=== PATIENT | female | born 1990 | race Hispanic/Latino ===

== ENCOUNTER 2019-11-15 21:02 | Day surgery (SDC) | payer BC, SELFPAY ==
[2019-11-15 21:59] VITALS: BMI 35.3
[2019-11-15] MEDS ORDERED: hydrALAZINE 20 MG/ML VIAL SLOW IVP PRN (22:12)
[2019-11-15 23:15] LABS: Amphetamine Not Detected (NotDetected); Bacteria/HPF None Seen HPF (None Seen); Barbiturates Screen Not Detected (NotDetected); Benzodiazepine Screen Not Detected (NotDetected); Bilirubin Negative (Negative); Blood, Urine Negative (Negative); Clarity Clear (Clear); Cocaine Metabolite Screen Not Detected (NotDetected); Glucose, Urine (Dipstick) Normal (Negative); Leukocyte 75 Leu/uL (Negative); Medtox Control Line Valid? VALID (VALID); Medtox Reader # READER 4; Methadone Not Detected (NotDetected); Methamphetamine Not Detected (NotDetected); Nitrite Negative (Negative); Opiate Screen Not Detected (NotDetected); Oxycodone Screen Not Detected (NotDetected); Phencyclidine (PCP) Not Detected (NotDetected); Protein, Urine (Dipstick) 10 mg/dL (Neg-Trace); Squamous Epithelial 0-3 HPF (0-3); THC/Cannabinoid Screen Detected (NotDetected); Tricyclic Screen Not Detected (NotDetected); Urobilinogen Normal mg/dL (Less than 2); WBC/HPF 0-3 HPF (0-3)
--- NOTE | 2019-11-15 23:53 | ULT ---
OB ULTRASOUND: 11/15/19 COMPARISON: None. HISTORY: Abdominal pain in a female. No care. TECHNIQUE: Multiplanar ellison scale and color Doppler images were obtained in a transabdominal ultrasound. FINDINGS: There is a single live intrauterine with heart rate of 152 beats per minute. The fetus is i n vertex presentation. The cervix cannot be seen secondary to the position. Average age of the fetus based off today's examination is 37 weeks and 0 days. The following measurements were taken and dates based off these measurements are as follows: BPD 9.08 cm 36 weeks, 6 days HC 32.65 cm 37 weeks, 0 days AC 33.36 cm 37 weeks, 2 days FL 7.24 cm 37 weeks, 0 days The placenta is anterior in location without evidence of placenta previa. LIAN is 9.7 cm, which is nor mal. imp Single live intrauterine with estimated age of 37 weeks, 0 days. POS: EAA
[2019-11-15 23:55] LABS: Hemoglobin 11.2 g/dL (12.0-16.0); Mean Corpuscular HGB CONC 33.5 g/dL (32.0-36.0); Mean Corpuscular Hemoglobin 27.7 pg (27.0-31.0); Mean Corpuscular Volume 82.8 fL (78.0-98.0); Mean Platelet Volume 7.8 fL (7.4-10.4); Platelet Count 294 thou/uL (130-400); RBC Distribution Width 13.2 % (11.5-14.5); Red Blood Cell (RBC) Count 4.05 mill/uL (4.20-5.40); White Blood Cell (WBC) Count 11.2 thou/uL (4.8-10.8)
[2019-11-16 00:33] LABS: Syphilis Antibody Nonreactive (Nonreactive); Syphilis Antibody Index 0.04 S/CO (<1.00 Non-Reactive)
[2019-11-16 00:34] LABS: HBSAg Index 0.21 S/CO (0-0.99); HIV (1/2) Antibody/Antigen Non-Reactive (NonReactive); HIV 1/2 INDEX 0.11 S/CO (<1.00); Hep B Surf Ag Non-Reactive S/CO (NonReactive)
--- NOTE | 2019-11-16 07:40 | PRG ---
DATE OF SERVICE: 11/15/2019 No care. CHIEF COMPLAINT: Groin pain. HISTORY OF PRESENT ILLNESS: The patient is a 29-year-old G6, P5 female with an intrauterine estimated at 37 weeks, who is presenting to Labor and Delivery with complaints of groin pain. The patient has not had any care. She has had one visit at what sounds like [place] at around 14 weeks gestation and a reported due date of 11/22. The patient reports that she has been having this groin pain for the last several days where it has been difficult to lift her leg to move and walk. She denies any vaginal bleeding, leakage of fluid, urinary urgency or frequency. She denies fever, fall, headache, chest pain, shortness of breath, cough, nausea, vomiting, diarrhea, constipation, hip problems, knee problems, muscle weakness. PAST MEDICAL HISTORY: Negative. PAST SURGICAL HISTORY: Negative. SOCIAL HISTORY: The patient denies drug, alcohol, tobacco use. ALLERGIES: NO KNOWN DRUG ALLERGIES. MEDICATIONS: vitamins. OB LABS: Unavailable. REVIEW OF SYSTEMS: Per HPI. PHYSICAL EXAMINATION: VITAL SIGNS: Blood pressure is 106/54, heart rate of 83, respiratory rate of 16, saturating 100% on room air, temperature 98.3. GENERAL: She appears to be in no acute distress. She is alert, oriented, cooperative, pleasant to interact with. HEAD: Normocephalic, atraumatic. LUNGS: Clear to auscultation bilaterally. HEART: Has a regular rate and rhythm. ABDOMEN: Gravid, soft, nontender. EXTREMITIES: Nontender, nonedematous. She does have some groin pain, exacerbated with deviation of the uterus to the right. No evidence of hernia. Pain reports to shoot into her vaginal region and feels some referred pain or discomfort down into her knee region. heart tracing shows the fetus with a baseline in the 130s with moderate long-term variability, positive 15 x 15 accelerations, no decelerations. The tocometer does not have any contractions visible. White count is 11.2, hemoglobin 11.2, hematocrit 33.5, and platelets of 294,000. Urinalysis is negative for protein, ketones, nitrites, the patient has zero white blood cells, zero squamous cells, no bacteria seen. Drug screen is positive for cannabinoids. Serology syphilis is nonreactive. Hepatitis B surface antigen is nonreactive. HIV is nonreactive. Blood type is O positive with a negative antibody screen. Ultrasound shows a fetus in vertex presentation with anterior placenta and MAGNO of 9.7 cm and estimated gestational age of 37 weeks. ASSESSMENT AND PLAN: The patient is a 29-year-old female with a term and without care. Fetus has a reactive NST and category 1 tracing and is in vertex presentation. GBS has been collected and rubella has been collected today and still pending results. [facility] has provided information to her about the clinic and has given her contact information to establish care there. Job ID: [id number]
== END 2019-11-15 23:50 | disposition home or self-care (01) ==
LOC: L&D/OP 21:02
PROVIDERS: ATTEND Obstetrics & Gynecology
DX: O99.89 Other specified diseases and conditions complicating pregnancy, childbirth and the puerperium (principal); R10.30 Lower abdominal pain, unspecified; Z3A.37 37 weeks gestation of pregnancy
CPT/HCPCS: 36415; 59025; 76805; 80306; 81001; 85027; 86762; 86780; 86850; 86900; 86901; 87081; 87340; 87389; 99285

== ENCOUNTER 2019-11-30 13:10 | Inpatient (IN) | payer MEDICAID, SELFPAY ==
[2019-11-30 13:44] VITALS: BMI 34.7
[2019-11-30 14:44] LABS: Amnisure Test No Membranes Rupture (No Rupture)
[2019-11-30 14:45] LABS: Amnisure Internal Control QC ACCEPTABLE (ACCEPTABLE)
[2019-11-30] MEDS ORDERED: Ibuprofen 800 MG TAB PO PRN (18:56)
[2019-11-30] MEDS ORDERED: Butorphanol Tartrate 1 MG/ML VIAL SLOW IVP PRN (18:56)
[2019-11-30] MEDS ORDERED: Ondansetron PF 4 MG/2 ML Vial IVP PRN ×2 (18:56→23:18)
[2019-11-30] MEDS ORDERED: Promethazine HCl 25 MG/ML VIAL IM PRN ×2 (18:56→23:18)
[2019-11-30] MEDS ORDERED: NS / Oxytocin 40 units/1000ml 1,000 ML IV PRN (18:56)
[2019-11-30] MEDS ORDERED: hydrALAZINE 20 MG/ML VIAL SLOW IVP PRN (18:56)
[2019-11-30] MEDS ORDERED: Lactated Ringer's 1,000 ML IV SCH ×2 (18:56)
[2019-11-30] MEDS ORDERED: HYDROcodone/Acetaminophen 5/325 mg Tablet PO PRN ×2 (18:56)
[2019-11-30] MEDS ORDERED: NS w/ Oxytocin 10 units 500 ML IV SCH (18:56)
[2019-11-30] MEDS ORDERED: Lidocaine 1% (PF) 30 ML VIAL SC PRN (18:56)
[2019-11-30] MEDS ORDERED: Penicillin G Potassium 5 MILL.UNITS in Sodium Chloride 0.9% 100 ML IVPB SCH (19:00)
[2019-11-30 19:18] LABS: Hemoglobin 11.6 g/dL (12.0-16.0); Mean Corpuscular HGB CONC 32.3 g/dL (32.0-36.0); Mean Corpuscular Hemoglobin 26.4 pg (27.0-31.0); Mean Corpuscular Volume 81.7 fL (78.0-98.0); Platelet Count 298 thou/uL (130-400); RBC Distribution Width 14.3 % (11.5-14.5); Red Blood Cell (RBC) Count 4.41 mill/uL (4.20-5.40); White Blood Cell (WBC) Count 13.7 thou/uL (4.8-10.8)
--- NOTE | 2019-11-30 19:22 | HP ---
TIME OF SERVICE: 1845 hours. REASON FOR ADMISSION: A 41 weeks' gestation, moderately good criteria with no care for induction of labor. HISTORY OF PRESENT ILLNESS: Ms. Long is a 29-year-old 6, para 5. The patient reports she has custody of all 5 children; however, this has not been evident. She reports that this baby is for adoption. She has had care limited to an ultrasound and new OB visit with a negative GC and chlamydia in [place] on 05/30. BPD at that time revealed a composite gestational age of 14 weeks and 6 days, which placed her MCKENNA at 11/21 to 11/22. This places her at 41 weeks plus. She presented today stating she fell and slipped on her bottom. The fetus was active, no bleeding; however, the patient desires induction of labor. COLD MEAT CHEF HISTORY: post-term x5. Denies any other complications. MEDICAL HISTORY: None. SURGICAL HISTORY: None. ALLERGIES: DENIES. MEDICATIONS: None. SOCIAL HISTORY: Denies tobacco, alcohol, or IV drug use. FAMILY HISTORY: Noncontributory. REVIEW OF SYSTEMS: Noncontributory. PHYSICAL EXAMINATION: GENERAL: female, in no acute distress. VITAL SIGNS: Temperature 98.2, pulse 85, blood pressure 132/72. HEENT: Within normal limits auscultation bilaterally. HEART: Regular rhythm. ABDOMEN: Soft and nontender. Fundal height 40. FHTs 150s. Vulva without lesions. Vagina without discharge. Cervix posterior, 1 to 2, 30, -2 cephalic. EXTREMITIES: Without clubbing, cyanosis, or edema. LABORATORY DATA: All OB labs pending. IMPRESSION: A 41 weeks with limited care, but early 2nd trimester ultrasound consistent with 41 weeks gestation. PLAN: Considering the patient's unwillingness to care and to be responsible about her at 41 weeks. We will go ahead and induce her labor and consult social work. Job ID: [id number]
[2019-11-30 19:57] LABS: Syphilis Antibody Nonreactive (Nonreactive); Syphilis Antibody Index 0.04 S/CO (<1.00 Non-Reactive)
[2019-11-30 21:07] LABS: HBSAg Index 0.18 S/CO (0-0.99); HIV (1/2) Antibody/Antigen Non-Reactive (NonReactive); HIV 1/2 INDEX 0.07 S/CO (<1.00); Hep B Surf Ag Non-Reactive S/CO (NonReactive)
[2019-11-30] MEDS ORDERED: Fentanyl 4 mcg/Bup 0.1% Cadd 100 ML ONE (23:00)
[2019-11-30] MEDS ORDERED: diphenhydrAMINE 50 MG/ML VIAL IVP PRN (23:18)
[2019-11-30] MEDS ORDERED: Lactated Ringer's 500 ML IV PRN (23:18)
[2019-11-30] MEDS ORDERED: Acetaminophen 325 MG TAB PO PRN (23:18)
[2019-11-30] MEDS ORDERED: Naloxone HCl 0.4 mg/ml Vial IVP PRN ×2 (23:18)
[2019-11-30] MEDS ORDERED: EPHEDRINE 25 MG/5 ML SYRINGE SLOW IVP PRN (23:18)
[2019-11-30] MEDS: Fentanyl 4 mcg/Bupivacaine 0.1% Cassette 100 ML EPIDURAL SCH (23:20)
[2019-11-30] MEDS ORDERED: Communication Order-Pharmacy FS SCH (23:30)
[2019-11-30] MEDS: Penicillin G 2.5 MILL.units 2.5 MILL.UNITS in Premix Bag 1 BAG IVPB SCH (23:40)
[2019-12-01] MEDS: Penicillin G 2.5 MILL.units 2.5 MILL.UNITS in Premix Bag 1 BAG IVPB SCH ×3 (03:25→17:39)
[2019-12-01 05:10] LABS: Amphetamine Not Detected (NotDetected); Barbiturates Screen Not Detected (NotDetected); Benzodiazepine Screen Not Detected (NotDetected); Cocaine Metabolite Screen Not Detected (NotDetected); Medtox Control Line Valid? VALID (VALID); Medtox Reader # READER 4; Methadone Not Detected (NotDetected); Methamphetamine Not Detected (NotDetected); Opiate Screen Not Detected (NotDetected); Oxycodone Screen Not Detected (NotDetected); Phencyclidine (PCP) Not Detected (NotDetected); THC/Cannabinoid Screen Detected (NotDetected); Tricyclic Screen Not Detected (NotDetected)
[2019-12-01] MEDS ORDERED: Fentanyl 4 mcg/Bup 0.1% Cadd 100 ML ONE (07:41)
[2019-12-01] MEDS: Fentanyl 4 mcg/Bupivacaine 0.1% Cassette 100 ML EPIDURAL SCH (07:46)
--- NOTE | 2019-12-01 08:11 | PRG ---
DATE OF SERVICE: 12/01/2019 TIME OF SERVICE: 0730 hours. SUBJECTIVE: The patient is on . She received an epidural, exam reveals cervix to be 6, 70, -2, cephalic, bag of water intact. AROM was performed with clear fluid noted. Category 1 heart rate tracing. IMPRESSION: Now at 41+ weeks' gestation, induction of labor, insufficient care PLAN: Continue induction of labor. Anticipate spontaneous vaginal delivery. Dr. Ibarra will be taking over the patient's care at 0800 hours. Job ID: [id number]
[2019-12-01] MEDS ORDERED: Methylergonovine 0.2 MG/ML VIAL ONE ×2 (11:59→12:00)
[2019-12-01] MEDS ORDERED: Misoprostol 200 MCG TAB ONE (12:00)
[2019-12-01] MEDS ORDERED: Methylergonovine 0.2 MG/ML VIAL IM PRN (12:04)
[2019-12-01] MEDS ORDERED: Misoprostol 200 MCG TAB PR PRN (12:04)
[2019-12-01] MEDS ORDERED: Lanolin Ointment 7 GM TUBE TOP PRN (13:19)
[2019-12-01] MEDS ORDERED: Milk Of Magnesia 30 ML UDCUP PO PRN (13:19)
[2019-12-01] MEDS ORDERED: Bisacodyl 10 MG SUPP PR PRN (13:19)
[2019-12-01] MEDS ORDERED: NS / Oxytocin 40 units/1000ml 1,000 ML IV SCH (13:19)
[2019-12-01] MEDS ORDERED: Ondansetron PF 4 MG/2 ML Vial IVP PRN (13:19)
[2019-12-01] MEDS ORDERED: hydrALAZINE 20 MG/ML VIAL SLOW IVP PRN (13:19)
[2019-12-01] MEDS ORDERED: Adacel (T-DAP) 0.5 ML SYRINGE IM ONE (13:19)
[2019-12-01] MEDS: Ferrous Sulfate 325 MG TAB PO SCH (17:32)
[2019-12-01] MEDS: traMADol HCl 50 MG TAB PO PRN (17:42)
[2019-12-01] MEDS: Ibuprofen 800 MG TAB PO SCH ×2 (17:42→21:22)
[2019-12-01] MEDS: Docusate Calcium (SURFAK) 240 MG CAP PO SCH (21:22)
--- NOTE | 2019-12-02 00:10 | OP ---
DATE OF PROCEDURE: 12/01/2019 The patient delivered a female infant on 12/01/2019 at 11:51 a.m. by uncomplicated term spontaneous vaginal delivery. The gestational age is 41 weeks and 2 days. Apgars were 7 and 9. weight was 3937 g. There were no lacerations. Quantitative blood loss 300 mL. Delivering physician [address] Dr. Dylon Ibarra. Counts were correct. Complications none. Mother and baby were stable in the room in the immediate . Job ID: [id number]
[2019-12-02 05:31] LABS: Hemoglobin 9.9 g/dL (12.0-16.0)
[2019-12-02] MEDS: Ibuprofen 800 MG TAB PO SCH ×2 (06:10→14:24)
[2019-12-02] MEDS: Ferrous Sulfate 325 MG TAB PO SCH (07:44)
[2019-12-02] MEDS: Docusate Calcium (SURFAK) 240 MG CAP PO SCH (07:44)
[2019-12-02] MEDS: traMADol HCl 50 MG TAB PO PRN (07:47)
[2019-12-02 08:21] VITALS: BP 99/62; TEMP 98
[2019-12-02] MEDS ORDERED: Prenatal Vitamin 1 TAB PO SCH (09:00)
--- NOTE | 2019-12-03 02:40 | DIS ---
DATE OF ADMISSION: 11/30/2019 DATE OF DISCHARGE: 12/02/2019 ADMITTING DIAGNOSES: 1. No care. 2. 41 weeks' gestation by 14-week ultrasound. DISCHARGE DIAGNOSES: 1. No care. 2. 41 weeks' gestation by 14-week ultrasound. PROCEDURE: Term spontaneous vaginal delivery. HOSPITAL COURSE: The patient is a 29-year-old grand multiparous female, who presented to Labor and Delivery because she slipped and fell. During evaluation, the patient was noted to be 41 weeks' gestation by a 14-week ultrasound and having had no care. The patient was kept for induction of labor for postdates. Her labor course and delivery were uncomplicated. She is now day one, tolerating p.o., voiding on her own, having decreased lochia and good pain control. She reports that this baby is up for adoption and has already chosen adoptive parents, who will be assuming care at time of delivery and has expressed interest in discharging home. Vital signs this morning; blood pressure is 93/49, temperature 97.9, pulse is 66, and respiratory rate is 16. In general, she appears to be in no acute distress. She is alert, oriented, cooperative, and pleasant to interact with. Head is normocephalic and atraumatic. Fundus is firm. Extremities are nontender and nonedematous. LABORATORY DATA: hemoglobin 9.9 and hematocrit 32.3. DISCHARGE INSTRUCTIONS: The patient will be discharged home with ibuprofen for pain control. She has reported that she is going to follow up with [place] [facility] for her care. We told her to seek medical attention if she experiences fever, increasing pain, or bleeding. Otherwise, a six-week visit is appropriate. Job ID: [id number]
--- NOTE | 2019-12-04 04:16 | PQF ---
Lennie Long MICHAEL MD [id number] CLINICAL DOCUMENTATION CLARIFICATION FORM: POST DISCHARGE Addendum to original discharge summary date: 12/02/19 Late entry note date: 12/04/19 DATE:12/04/2019 ATTN:Dylon Salazar Please exercise your independent, professional judgment in responding to the clarification form. Clinical indicators are provided on the bottom of this form for your review Please check appropriate box(s): [ x] Associated Diagnosis: Acute blood loss anemia [ ] Not clinically significant laboratory findings [ ] Other diagnosis [ ] Unable to determine In addition, please specify: Present on Admission (POA): [ ] Yes [ x ] No [ ] Unable to determine For continuity of documentation, please document condition throughout progress notes and discharge summary. Thank You. CLINICAL INDICATORS - SIGNS / SYMPTOMS / LABS Laboratory 11/29 RBC 44.1, Hgb 11.6, Hct 36.0 Laboratory 12/01 Hgb 9.9, Hct 32.3 Vital signs 11/29 BP 113/70, Pulse 91, Resp 18, Temp 98.4 Operative report p1 11/30 Quantitative blood loss 300ml RISK FACTORS H&P p1 11/29 41 weeks of gestation H&P p2 11/29 Limited care Operative report p1 11/30 s/p TREATMENTS: Sep 27 IV Lactated Ringer 1L SEP 27 Ferrous Sulfate 325 mg oral Laboratory monitoring (This form is maintained as a part of the permanent medical record) 2014 [employer], [employer]. All Rights Reserved [email or web address]
== END 2019-12-02 17:45 | disposition home or self-care (01) | DRG 806 ==
LOC: L&D 13:10 → 3SW 12-01 14:53
PROVIDERS: ADMIT Obstetrics & Gynecology; ATTEND Obstetrics & Gynecology
PROC: 10E0XZZ Delivery of Products of Conception, External Approach (ICD-10-PCS; principal; 2019-11-30)
PROC: 10907ZC Drainage of Amniotic Fluid, Therapeutic from Products of Conception, Via Natural or Artificial Opening (ICD-10-PCS; 2019-11-30)
DX: O48.0 Post-term pregnancy (principal); D62 Acute posthemorrhagic anemia; Z37.0 Single live birth; Z3A.41 41 weeks gestation of pregnancy; O90.81 Anemia of the puerperium
CPT/HCPCS: 36415; 51702; 80306; 84112; 85014; 85018; 85027; 86762; 86780; 86850; 86900; 86901; 87340; 87389; 99285; J2210; J2540; J2590; J3490

== ENCOUNTER 2020-08-03 17:29 | Emergency (ER) | payer MEDICAID ==
[2020-08-03 18:24] LABS: #Basophils 0.1 thou/uL (0.0-0.2); #Eosinphils 0.6 thou/uL (0.0-0.7); #Lymphocytes 3.4 thou/uL (1.20-3.40); #Monocytes 0.6 thou/uL (0.11-0.59); #Neutrophils 7.4 thou/uL (1.40-6.50); %Basophils 0.7 % (0.0-1.0); %Eosinophils 4.8 % (0.0-10.0); %Lymphocytes 28.1 % (21.0-51.0); %Monocytes 5.4 % (0.0-10.0); %Neutrophils 61.1 % (42.0-75.0); Hemoglobin 11.7 g/dL (12.0-16.0); Mean Corpuscular HGB CONC 32.8 g/dL (32.0-36.0); Mean Corpuscular Hemoglobin 26.3 pg (27.0-31.0); Mean Corpuscular Volume 80.4 fL (78.0-98.0); Mean Platelet Volume 7.7 fL (7.4-10.4); Platelet Count 322 thou/uL (130-400); RBC Distribution Width 13.4 % (11.5-14.5); Red Blood Cell (RBC) Count 4.44 mill/uL (4.20-5.40)
--- NOTE | 2020-08-03 18:24 | RAD ---
CHEST ONE VIEW: 08/03/20 HISTORY: Wheezing. COMPARISON: None. FINDINGS: Normal cardiac silhouette. The pulmonary vessels and hilum are normal. Costophrenic angles are clear. Lung volumes are diminished, likely due to poor inspiratory effort. No mass or consolidation. No pn eumothorax or acute osseous abnormality. IMPRESSION: No acute cardiopulmonary process. POS: PPP
[2020-08-03] MEDS ORDERED: Dexamethasone 10 MG/ML VIAL ONE (18:32)
[2020-08-03] MEDS ORDERED: Dexamethasone 4 mg/ml Vial ONE (18:33)
[2020-08-03 18:44] LABS: Anion Gap 12 mmol/L (10-20); BUN (Urea Nitrogen) 12 mg/dL (7.0-18.7); Calc. Creatinine Clearance 0 mL/min (70-130); Calcium 8.9 mg/dL (7.8-10.44); Carbon Dioxide 27 mmol/L (22-29); Chloride 105 mmol/L (98-107); Glucose 103 mg/dL (70-105); Potassium 3.7 mmol/L (3.5-5.1); Sodium 140 mmol/L (136-145)
== END 2020-08-03 20:21 | disposition home or self-care (01) ==
LOC: ERS 17:29
DX: J18.9 Pneumonia, unspecified organism (principal); F17.210 Nicotine dependence, cigarettes, uncomplicated
CPT/HCPCS: 36415; 71045; 80048; 85025; 85379; 93005; 96374; J1100